=== PATIENT | female | born 1940 | race Caucasian/White ===

== ENCOUNTER 2018-03-09 08:51 | Emergency (ER) | payer MEDICARE ==
[~2018-03-09] VITALS: Ht 157.5 cm; Wt 51.0 kg
[2018-03-09 08:55] VITALS: BP 120/65; PULSE 103; RESP 16; TEMP 97.4; O2SAT 97
[2018-03-09] MEDS ORDERED: TRIA37.53 PO (09:38)
[2018-03-09] MEDS ORDERED: CELE200C PO (09:38)
[2018-03-09] MEDS ORDERED: DILT120T PO (09:38)
[2018-03-09] MEDS ORDERED: VITA2000 PO (09:38)
[2018-03-09] MEDS ORDERED: LOMO2.5T PO ×2 (09:38→12:21)
[2018-03-09] MEDS ORDERED: PRIL20TA2 PO (09:38)
[2018-03-09] MEDS ORDERED: BIOTCAP PO (09:38)
[2018-03-09] MEDS ORDERED: BENA25CA4 PO (09:38)
[2018-03-09] MEDS ORDERED: SODIUM CHLOR 0.9% 1000 ML INJ 1,000 ML IV SCH (09:51)
[2018-03-09] MEDS ORDERED: SODIUM CHLORIDE 0.9% FLUSH 10 ML FLUSH IV FLUSH PRN (10:00)
[2018-03-09 10:09] LABS: HEMATOCRIT 38.1 % (35.0-46.0); HEMOGLOBIN 12.6 GM/DL (11.6-15.3); MEAN CELL VOLUME 88.1 FL (80.0-100.0); MEAN CORPUSCULAR HEMOGLOBIN 29.1 PG (27.0-34.0); MEAN PLATELET VOLUME 7.5 FL (7.0-11.0); PLATELET COUNT 290 TH/MM3 (150-450); RED BLOOD COUNT 4.33 MIL/MM3 (4.00-5.30); RED CELL DISTRIBUTION WIDTH 13.4 % (11.6-17.2); WHITE BLOOD COUNT 6.4 TH/MM3 (4.0-11.0)
[2018-03-09 10:12] LABS: BLOOD, URINE TRACE (NEG); GLUCOSE,URINE NEG (NEG); KETONE, URINE TRACE mg/dL (NEG); NITRITE,URINE NEG (NEG); URINE COLOR YELLOW (YELLW/STRAW); URINE LEUKOCYTE ESTERASE TRACE (NEG)
[2018-03-09 10:14] VITALS: BP 121/59; PULSE 90; RESP 16; O2SAT 97
[2018-03-09 10:19] LABS: BILIRUBIN, URINE NEG (NEG)
[2018-03-09 10:21] LABS: AMORPHOUS SEDIMENT, URINE FEW; BACTERIA, URINE MOD /hpf; RBC, URINE 0-3 /hpf (0-3); SQUAMOUS EPITHELIAL CELL URINE > 8 /hpf (0-5)
[2018-03-09 10:22] LABS: WHITE BLOOD CELL CLUMPS RARE
[2018-03-09 10:29] LABS: CHLORIDE 98 MEQ/L (98-107); SODIUM (NA) 133 MEQ/L (136-145)
[2018-03-09 10:33] LABS: ALBUMIN 3.6 GM/DL (3.4-5.0); BICARBONATE 25.4 MEQ/L (21.0-32.0); CALCIUM 8.9 MG/DL (8.5-10.1); GLUCOSE,RANDOM 103 MG/DL (74-106)
[2018-03-09 10:34] LABS: BLOOD UREA NITROGEN 25 MG/DL (7-18)
[2018-03-09 10:36] LABS: ALT (GPT) 14 U/L (10-53); AST (GOT) 13 U/L (15-37); GLOMERULAR FILTRATION RATE 43 ML/MIN (>89)
[2018-03-09 10:38] LABS: TOTAL BILIRUBIN ADULT 0.4 MG/DL (0.2-1.0); TOTAL PROTEIN 7.9 GM/DL (6.4-8.2)
[2018-03-09 10:39] LABS: ALKALINE PHOSPHATASE 101 U/L (45-117)
[2018-03-09 10:49] LABS: BANDS 32 % (0-6); BASOPHILS 1 % (0-2); LYMPHOCYTES 17 % (9-44); MONOCYTES 15 % (0-8); NEUTROPHIL # MANUAL DIFF 4.2 TH/MM3 (1.8-7.7); POLYS (SEG NEUTROPHILS) 34 % (16-70)
[2018-03-09] MEDS ORDERED: IOHEXOL 350 MG/ML 10 ML VIAL (for RAD DIAG) IVCONTRAST ONE (11:10)
--- NOTE | 2018-03-09 11:13 | PD ---
HPI Chief Complaint: GI Complaint Time Seen by Provider: 09:43 Travel History International Travel<30 days: No Contact w/Intl Traveler<30days: No Traveled to known affect area: No History of Present Illness HPI 77-year-old female here for evaluation of diarrhea 6 days. She reports multiple episodes of non-bloody watery diarrhea per day Sunday through Sunday. and Sunday she started taking Imodium recommended by her doctor in [place] and she reports symptom improvement. Diarrhea returned this morning prompting her visit. She reports mild aching/cramping discomfort in the left lower quadrant. She reports this is common for her and not new. She denies any nausea, vomiting, fever, chills. Symptom severity is moderate. Has not recently been on antibiotics. No foreign travel. No sick contacts at home. PFSH Past Medical History GERD: Yes Hypertension: Yes Musculoskeletal: Yes (reynauds;schleroderma) Influenza Vaccination: Yes Past Surgical History Surgical History: No Previous Surgery Social History Alcohol Use: Yes (daily) Tobacco Use: No Substance Use: No Allergies-Medications (Allergen,Severity, Reaction): Coded Allergies: amoxicillin (Verified Allergy, Unknown, 03/09/18) Reported Meds & Prescriptions Reported Meds & Active Scripts Active Reported Vitamin D3 (Cholecalciferol) 2,000 Unit Cap 2,000 Units PO DAILY Biotin 5 Mg Cap 5 Mg PO DAILY Diltiazem (Diltiazem HCl) 120 Mg Tab 120 Mg PO DAILY Triamterene-Hydrochlorothiazide 37.5-25 Mg Cap 1 Cap PO DAILY Prilosec (Omeprazole Magnesium) 20 Mg Tab 1 Tab PO DAILY Lomotil (Diphenoxylate-Atropine) 2.5-0.025 Mg Tab 1 Tab PO Q6H PRN Celebrex (Celecoxib) 200 Mg Cap 200 Mg PO DAILY Benadryl Allergy (Diphenhydramine HCl) 25 Mg Cap 1 Cap PO HS Review of Systems Except as stated in HPI: all other systems reviewed are Neg General / Constitutional: No: Fever Eyes: No: Visual changes HENT: No: Headaches Cardiovascular: No: Chest Pain or Discomfort Respiratory: No: Shortness of Breath Gastrointestinal: Positive: Diarrhea, Abdominal Pain Genitourinary: No: Dysuria Musculoskeletal: No: Pain Skin: No Rash Neurologic: No: Weakness Physical Exam Narrative GENERAL: Alert and well-appearing 77-year-old female SKIN: Warm and dry. HEAD: Atraumatic. Normocephalic. EYES: Pupils equal and round. No scleral icterus. No injection or drainage. ENT: No nasal bleeding or discharge. Mucous membranes pink and moist. NECK: Trachea midline. No JVD. CARDIOVASCULAR: Regular rate and rhythm. RESPIRATORY: No accessory muscle use. Clear to auscultation. Breath sounds equal bilaterally. GASTROINTESTINAL: Abdomen soft, nondistended, +TTP LLQ. No rebound or guarding. Hepatic and splenic margins not palpable. No CVA tenderness MUSCULOSKELETAL: Extremities without clubbing, cyanosis, or edema. No obvious deformities. NEUROLOGICAL: Awake and alert. No obvious cranial nerve deficits. Motor grossly within normal limits. Five out of 5 muscle strength in the arms and legs. Normal speech. PSYCHIATRIC: Appropriate mood and affect; insight and judgment normal. Data Data Last Documented VS Vital Signs Date Time Temp Pulse Resp B/P (MAP) Pulse Ox O2 Delivery O2 Flow Rate FiO2 03/09/18 11:19 90 16 118/52 (74) 97 Room Air 03/09/18 08:55 97.4 Orders Orders Complete Blood Count With Diff (03/09/18 09:51) Comprehensive Metabolic Panel (03/09/18 09:51) Lipase (03/09/18 09:51) Urinalysis - C+S If Indicated (03/09/18 09:51) Ct Abd/Pel W Iv Contrast(Rout) (03/09/18 09:51) Iv Access Insert/Monitor (03/09/18 09:51) Sodium Chlor 0.9% 1000 Ml Inj (Ns 1000 M (03/09/18 09:51) Sodium Chloride 0.9% Flush (Ns Flush) (03/09/18 10:00) C Diff Toxin Pcr (03/09/18 09:51) Urine Culture (03/09/18 10:00) Iohexol 350 Inj (Omnipaque 350 Inj) (03/09/18 11:10) Labs Laboratory Tests Test 03/09/18 10:00 03/09/18 10:05 03/09/18 10:45 Urine Collection Type CLEAN CATCH Urine Color YELLOW Urine Turbidity CLOUDY Urine pH 5.0 Urine Specific [place] GREATER/EQUAL 1.030 Urine Protein 30 mg/dL Urine Glucose (UA) NEG mg/dL Urine Ketones TRACE mg/dL Urine Occult Blood TRACE Urine Nitrite NEG Urine Bilirubin NEG Urine Urobilinogen 0.2 MG/DL Urine Leukocyte Esterase TRACE Urine RBC 0-3 /hpf Urine WBC 6-8 /hpf Urine WBC Clumps RARE Urine Squamous Epithelial Cells > 8 /hpf Urine Amorphous Sediment FEW Urine Bacteria MOD /hpf Urine Hyaline Casts 3-5 /lpf Urine Fine Granular Casts 0-2 /lpf Microscopic Urinalysis Comment CULTURE INDICATED Urine Collection Time 1000 White Blood Count 6.4 TH/MM3 Red Blood Count 4.33 MIL/MM3 Hemoglobin 12.6 GM/DL Hematocrit 38.1 % Mean Corpuscular Volume 88.1 FL Mean Corpuscular Hemoglobin 29.1 PG Mean Corpuscular Hemoglobin Concent 33.0 % Red Cell Distribution Width 13.4 % Platelet Count 290 TH/MM3 Mean Platelet Volume 7.5 FL CBC Comment AUTO DIFF Differential Total Cells Counted 100 Neutrophils % (Manual) 34 % Band Neutrophils % 32 % Lymphocytes % 17 % Monocytes % 15 % Eosinophils % 1 % Basophils % 1 % Neutrophils # (Manual) 4.2 TH/MM3 Differential Comment FINAL DIFF MANUAL Platelet Estimate NORMAL Platelet Morphology Comment NORMAL Red Cell Morphology Comment NORMAL Blood Urea Nitrogen 25 MG/DL Creatinine 1.20 MG/DL Random Glucose 103 MG/DL Total Protein 7.9 GM/DL Albumin 3.6 GM/DL Calcium Level 8.9 MG/DL Alkaline Phosphatase 101 U/L Aspartate Amino Transf (AST/SGOT) 13 U/L Alanine Aminotransferase (ALT/SGPT) 14 U/L Total Bilirubin 0.4 MG/DL Sodium Level 133 MEQ/L Potassium Level 3.8 MEQ/L Chloride Level 98 MEQ/L Carbon Dioxide Level 25.4 MEQ/L Anion Gap 10 MEQ/L Estimat Glomerular Filtration Rate 43 ML/MIN Lipase 52 U/L [facility] Medical Decision Making Medical Screen Exam Complete: Yes Emergency Medical Condition: Yes Interpretation(s) CBC: Unremarkable, no leukocytosis BMP: BUN/creatinine 25/1.2 UA: Cloudy, trace leukocyte Estrace, 6-8 WBCs, W BC clumps, moderate bacteria C. difficile toxin: CT abdomen pelvis: Differential Diagnosis Diverticulitis, gastroenteritis, C. difficile Narrative Course 77-year-old female here with intermittent diarrhea for the last 6 days. She is well-appearing. Her abdomen is soft and nondistended. Mild left lower quadrant and suprapubic tenderness on original exam and resolved on reexam. Labs reviewed no leukocytosis, mild elevation of BUN/creatinine likely due to mild dehydration. No acute abnormality in electrolytes. She was given IV hydration. UA suggestive infection. CT abdomen pelvis showed mild diverticulosis without definitive inflammatory changes. Nonspecific bowel gas pattern which may represent mild ileus or gastroenteritis. My suspicion for ileus is low. Her abdomen is soft and nontender. No nausea or vomiting. Her symptoms are consistent with gastroenteritis. She will be treated with Cipro for UTI and Imodium for diarrhea. She was encouraged to drink plenty of fluids. Return precautions were discussed. Patient verbalized understanding and agrees to plan [facility] Point of Care Internal Pos. & Neg. Controls: Passed Fecal Specimen Occult Blood: Negative Diagnosis Primary Impression: UTI (urinary tract infection) Qualified Codes: N30.00 - Acute cystitis without hematuria Additional Impression: Gastroenteritis Referrals: Primary Care Physician Additional Instructions: Antibiotics as directed. Lomotil as directed. Drink plenty of fluid such as Gatorade. Return if he develop fever, chills, abdominal pain, nausea and vomiting, any new concerning symptom Scripts Diphenoxylate-Atropine (Lomotil) 2.5-0.025 Mg Tab 2 TAB PO Q6H Y for DIARRHEA for 2 Days, #16 TAB 0 Refills Prov: Mary Crooks 03/09/18 Ciprofloxacin (Cipro) 500 Mg Tab 500 MG PO BID for Infection for 5 Days, #10 TAB 0 Refills Prov: Mary Crooks 03/09/18 Disposition: 01 DISCHARGE HOME Condition: Stable Mary Crooks Mar 09, 2018 11:13
[2018-03-09 11:19] VITALS: BP 118/52; PULSE 90; RESP 16; O2SAT 97
--- NOTE | 2018-03-09 11:36 | RADRPT ---
EXAM DATE/TIME: 03/09/2018 11:06 [facility] COMPARISON: No previous studies available for comparison. INDICATIONS : Diarrhea IV CONTRAST: 75 cc Omnipaque 350 (iohexol) IV ORAL CONTRAST: No oral contrast ingested. RADIATION DOSE: 7.49 CTDIvol (mGy) MEDICAL HISTORY : Hypertension. Gastroesophageal reflux disease. Reynauds, scleroderma. SURGICAL HISTORY : None. ENCOUNTER: Initial ACUITY: 4 - 6 days PAIN SCALE: 2/10 LOCATION: diffuse lower abdomen TECHNIQUE: Volumetric scanning of the abdomen and pelvis was performed. Using automated exposure control and ad justment of the mA and/or kV according to patient size, radiation dose was kept as low as reasonably achievable to obtain optimal diagnostic quality images. DICOM format image data is available electro nically for review and comparison. FINDINGS: LOWER LUNGS: The visualized lower lungs are clear. LIVER: Homogeneous density with benign cysts in the anterior liver measuring up to 5.6 x 4.3 cm. There is mi ld hepatic steatosis. The gallbladder is at the upper limits of normal in size. There is no dilation of the biliary tree. No calcified gallstones. SPLEEN: Normal size without lesion. PANCREAS: Within normal limits. KIDNEYS: Normal in size and shape. There is no mass, stone or hydronephrosis. ADRENAL GLANDS: Within normal limits. VASCULAR: There is no aortic aneurysm. BOWEL/MESENTERY: No oral contrast was given limiting the sensitivity. There is a small hiatal hernia noted. Scattered diverticuli are resident no definite inflammatory change. There are multiple small air-fluid levels i n the colon and several loops of small bowel. There is no free intraperitoneal air or fluid. ABDOMINAL WALL: Within normal limits. RETROPERITONEUM: There is no lymphadenopathy. BLADDER: No wall thickening or mass. REPRODUCTIVE: Within normal limits. INGUINAL: There is no lymphadenopathy or hernia. MUSCULOSKELETAL: Osteopenia, degenerative changes and scoliosis are present. There is an apparent sclerotic bone islan d in the right ilium. CONCLUSION: 1. Mild diverticulosis without definite inflammatory change. There is a mild and nonspecific bowel ga s pattern which may represent a mild ileus and/or gastroenteritis. 2. Small hiatal hernia. 3. Cyst in the anterior liver. 4. Gallbladder is at the upper limits of normal in size but otherwise unremarkable. Luis Llanes MD on March 09, 2018 at 11:30 Board Certified Radiologist. This report was verified electronically.
[2018-03-09 12:21] VITALS: BP 142/74; PULSE 90; RESP 16; O2SAT 98
[2018-03-09] MEDS ORDERED: CIPR-9 PO (12:21)
== END 2018-03-09 12:41 | disposition home or self-care (01) ==
LOC: PHED 08:51
DX: N30.00 Acute cystitis without hematuria (principal); K52.9 Noninfective gastroenteritis and colitis, unspecified; K21.9 Gastro-esophageal reflux disease without esophagitis; I10 Essential (primary) hypertension
CPT/HCPCS: 74177; 80053; 81001; 83690; 85007; 85027; 87086; 87493; 96360; 99285; J7030; Q9967